=== PATIENT | male | born 1990 | race Caucasian/White ===

== ENCOUNTER 2021-03-10 17:53 | Emergency (ER) | payer OTHER ==
[~2021-03-10] VITALS: Ht 172.7 cm; Wt 88.6 kg
[2021-03-10 18:06] VITALS: BP 142/96
[2021-03-10 19:23] LABS: HEMOGLOBIN 15.3 g/dl (13.5-17.5); MEAN CORPUSCULAR HEMOGLOBIN 30.1 pg (27.0-33.0); MEAN CORPUSCULAR VOLUME 88.6 fl (80.0-96.0); PLATELET COUNT, AUTOMATED 241 10^3/uL (150-450); RED BLOOD COUNT 5.08 10^6/uL (4.30-6.10)
[2021-03-10 20:12] LABS: ACETAMINOPHEN LEVEL < 2.0 UG/ML (10.0-30.0); ALBUMIN 4.6 GM/DL (3.2-5.2); ALT/SGPT 25 U/L (12-78); BILIRUBIN,DIRECT 0.1 MG/DL (0.0-0.2); BILIRUBIN,TOTAL 0.4 MG/DL (0.2-1.0); BLOOD UREA NITROGEN 15 MG/DL (7-18); CALCIUM LEVEL 10.4 MG/DL (8.5-10.1); CARBON DIOXIDE LEVEL 31 MEQ/L (21-32); CHLORIDE LEVEL 106 MEQ/L (98-107); CREATININE FOR GFR 0.98 MG/DL (0.70-1.30); ETHYL ALCOHOL (ETHANOL) < 0.003 % (0.000-0.010); GLOMERULAR FILTRATION RATE > 60.0 (>60); GLUCOSE, FASTING 97 MG/DL (70-100); POTASSIUM SERUM 4.3 MEQ/L (3.5-5.1); SALICYLATE LEVEL < 1.7 MG/DL (5.0-30.0); SODIUM LEVEL 141 MEQ/L (136-145); TOTAL PROTEIN 8.4 GM/DL (6.4-8.2)
[2021-03-10 21:14] LABS: AMPHETAMINES LEVEL URINE NEGATIVE (NEGATIVE); BARBITURATES URINE NEGATIVE (NEGATIVE); BENZODIAZEPINES URINE NEGATIVE (NEGATIVE); CANNABINOIDS URINE NEGATIVE (NEGATIVE); COCAINE METABOLITE URINE NEGATIVE (NEGATIVE); METHADONE URINE NEGATIVE (NEGATIVE); OPIATES URINE NEGATIVE (NEGATIVE); PHENCYCLIDINE URINE NEGATIVE (NEGATIVE)
== END 2021-03-10 22:55 | disposition home or self-care (01) ==
LOC: EDBD 17:53 → M ED 17:53
DX: F43.0 Acute stress reaction (principal); Z63.0 Problems in relationship with spouse or partner

== ENCOUNTER 2022-03-07 06:39 | Inpatient (IN) | payer OTHER ==
[~2022-03-07] VITALS: Ht 172.7 cm; Wt 83.9 kg
[2022-03-07 07:23] LABS: HEMATOCRIT 43.4 % (42.0-52.0); HEMOGLOBIN 14.9 g/dl (13.5-17.5); MEAN CORPUSCULAR HEMOGLOBIN 30.6 pg (27.0-33.0); MEAN CORPUSCULAR HGB CONC 34.3 g/dl (32.0-36.5); MEAN CORPUSCULAR VOLUME 89.1 fl (80.0-96.0); PLATELET COUNT, AUTOMATED 204 10^3/uL (150-450); RED BLOOD COUNT 4.87 10^6/uL (4.30-6.10); WHITE BLOOD COUNT 5.9 10^3/uL (4.0-10.0)
[2022-03-07 08:03] LABS: RSV AMPLIFICATION NEGATIVE (NEGATIVE)
[2022-03-07 09:29] LABS: ACETAMINOPHEN LEVEL 33.3 UG/ML (10.0-30.0); ALBUMIN 3.9 GM/DL (3.2-5.2); ALT/SGPT 22 U/L (12-78); BILIRUBIN,DIRECT 0.1 MG/DL (0.0-0.2); BILIRUBIN,TOTAL 0.3 MG/DL (0.2-1.0); BLOOD UREA NITROGEN 15 MG/DL (7-18); CALCIUM LEVEL 9.1 MG/DL (8.5-10.1); CARBON DIOXIDE LEVEL 27 MEQ/L (21-32); CHLORIDE LEVEL 109 MEQ/L (98-107); CREATININE FOR GFR 1.06 MG/DL (0.70-1.30); ETHYL ALCOHOL (ETHANOL) < 0.003 % (0.000-0.010); GLOMERULAR FILTRATION RATE > 60.0 (>60); GLUCOSE, FASTING 100 MG/DL (70-100); POTASSIUM SERUM 4.1 MEQ/L (3.5-5.1); SALICYLATE LEVEL < 1.7 MG/DL (5.0-30.0); SODIUM LEVEL 142 MEQ/L (136-145); TOTAL PROTEIN 7.1 GM/DL (6.4-8.2)
[2022-03-07] MEDS ORDERED: ISOVUE-370 76% 100ML VIAL As Ordered ONE (09:33)
[2022-03-07 11:11] LABS: AMPHETAMINES LEVEL URINE NEGATIVE (NEGATIVE); BARBITURATES URINE NEGATIVE (NEGATIVE); BENZODIAZEPINES URINE NEGATIVE (NEGATIVE); CANNABINOIDS URINE NEGATIVE (NEGATIVE); COCAINE METABOLITE URINE NEGATIVE (NEGATIVE); METHADONE URINE NEGATIVE (NEGATIVE); OPIATES URINE NEGATIVE (NEGATIVE); PHENCYCLIDINE URINE NEGATIVE (NEGATIVE)
[2022-03-07] MEDS ORDERED: MAALOX 30 ML SUSP *UDC PO PRN (15:35)
[2022-03-07] MEDS ORDERED: ACETAMINOPHEN TAB 650MG DOSE (2X325MG) PO PRN (15:35)
[2022-03-07] MEDS ORDERED: traZODone 50 MG TAB PO PRN (15:35)
[2022-03-07] MEDS ORDERED: MOM 30ML SUSPENSION UDC PO PRN (15:35)
[2022-03-07] MEDS ORDERED: HOME MED LIST COMPLETE! XX SCH (16:20)
[2022-03-07 20:28] VITALS: BP 132/83
[2022-03-08 06:23] VITALS: BP 118/68
[2022-03-08] MEDS: CitaloPRAM (CeleXA) 20 MG TAB PO SCH (14:07)
[2022-03-08 17:03] VITALS: BP 122/65
[2022-03-09 06:33] VITALS: BP 109/57
[2022-03-09] MEDS: CitaloPRAM (CeleXA) 20 MG TAB PO SCH (07:43)
[2022-03-09 16:38] VITALS: BP_SYST 110; BP_SYST 125; BP_DIAS 60; BP_DIAS 90
[2022-03-10 06:29] VITALS: BP 118/72
[2022-03-10] MEDS: CitaloPRAM (CeleXA) 20 MG TAB PO SCH (08:58)
[2022-03-10] MEDS: hydrOXYzine 50 MG TAB PO PRN ×2 (14:57→22:45)
[2022-03-10 18:52] VITALS: BP 130/80
[2022-03-11 06:37] VITALS: BP 116/65
[2022-03-11] MEDS: CitaloPRAM (CeleXA) 20 MG TAB PO SCH (08:42)
[2022-03-11] MEDS ORDERED: CELE20TA PO (12:42)
[2022-03-11 17:54] VITALS: BP 120/74
[2022-03-12 06:57] VITALS: BP 110/66
[2022-03-12 08:09] VITALS: BP 110/66
[2022-03-12] MEDS: CitaloPRAM (CeleXA) 20 MG TAB PO SCH (08:39)
[2022-03-12] MEDS ORDERED: HYDR50TA70 PO ×2 (08:45→08:49)
== END 2022-03-12 13:02 | disposition home or self-care (01) | DRG 885 ==
LOC: M ED 06:39 → M ED INP 15:35 → M PSY 20:10
PROVIDERS: ADMIT Psychiatry & Neurology Psychiatry; ATTEND Psychiatry & Neurology Psychiatry
DX: F32.2 Major depressive disorder, single episode, severe without psychotic features (principal); R45.851 Suicidal ideations; Z63.5 Disruption of family by separation and divorce

== ENCOUNTER 2022-03-17 14:55 | Emergency (ER) | payer OTHER ==
[~2022-03-17] VITALS: Ht 172.7 cm; Wt 86.4 kg
[~2022-03-17 14:55] MED LIST: CELE20TA PO; HYDR50TA70 PO
[2022-03-17] MEDS ORDERED: NS 1,000 ML IV ONE (19:35)
[2022-03-17] MEDS ORDERED: methylPREDNISolone 125MG 2ML VIAL IV ONE (19:35)
[2022-03-17] MEDS ORDERED: AMPICILLIN SOD/SULBACTAM SOD 3 GM in D5W MINI-BAG PLUS 100 ML IV ONE (19:35)
[2022-03-17] MEDS ORDERED: ISOVUE-370 76% 100ML VIAL As Ordered ONE (20:02)
[2022-03-17 20:14] LABS: BASO # 0.1 10^3/uL (0.0-0.2); BASO % 0.4 % (0.0-1.0); EOS % 0.1 % (0.0-3.0); HEMATOCRIT 43.5 % (42.0-52.0); HEMOGLOBIN 15.1 g/dl (13.5-17.5); LYMPH # 1.9 10^3/uL (1.5-5.0); LYMPH % 15.4 % (24.0-44.0); MEAN CORPUSCULAR HEMOGLOBIN 30.1 pg (27.0-33.0); MEAN CORPUSCULAR HGB CONC 34.7 g/dl (32.0-36.5); MEAN CORPUSCULAR VOLUME 86.8 fl (80.0-96.0); MONO # 1.5 10^3/uL (0.0-0.8); MONO % 11.9 % (2.0-8.0); NEUTROPHILS % 71.8 % (36.0-66.0); PLATELET COUNT, AUTOMATED 225 10^3/uL (150-450); RED BLOOD COUNT 5.01 10^6/uL (4.30-6.10); WHITE BLOOD COUNT 12.6 10^3/uL (4.0-10.0)
[2022-03-17 20:38] LABS: ALBUMIN 4.6 GM/DL (3.2-5.2); BILIRUBIN,DIRECT 0.3 MG/DL (0.0-0.2); BILIRUBIN,TOTAL 0.9 MG/DL (0.2-1.0); C REACTIVE PROTEIN QUANTITATIV 8.5 MG/DL (0.00-0.30); TOTAL PROTEIN 8.8 GM/DL (6.4-8.2)
[2022-03-17 20:51] LABS: ERYTHROCYTE SEDIMENTATION RATE 23 mm/hr (0-15)
[2022-03-17] MEDS ORDERED: LIDOCAINE W/EPINEPHRINE 1% 20ML VIAL SC ONE (21:40)
[2022-03-17] MEDS ORDERED: AMOX875T2 PO (22:32)
[2022-03-17] MEDS ORDERED: PERC5TAB12 PO (22:34)
[2022-03-17] MEDS ORDERED: PERCOCET 5MG/325MG TAB PO ONE (22:40)
[2022-03-18 00:22] VITALS: BP 130/79
== END 2022-03-18 00:24 | disposition home or self-care (01) ==
LOC: M ED 14:55
DX: J02.0 Streptococcal pharyngitis (principal); Z79.899 Other long term (current) drug therapy
CPT/HCPCS: 70491; 80047; 80076; 83605; 85025; 85652; 86140; 87040; 87070; 87075; 87077; 87205; 87880; 96365; 96375; 99284; J0295; J2930; Q9967